=== PATIENT | female | born 1980 | race African-American/Black ===

== ENCOUNTER 2018-02-08 11:46 | Outpatient (CLI) | payer BC ==
[2018-02-08 13:26] LABS: #Lymphocytes 1.3 thou/uL (1.20-3.40); #Monocytes 0.6 thou/uL (0.11-0.59); %Eosinophils 1.1 % (0.0-10.0); %Lymphocytes 32.9 % (21.0-51.0); %Monocytes 14.4 % (0.0-10.0); %Neutrophils 50.5 % (42.0-75.0); Hemoglobin 13.7 g/dL (12.0-16.0); Mean Corpuscular HGB CONC 34.4 g/dL (32.0-36.0); Mean Platelet Volume 8.7 fL (7.4-10.4); Platelet Count 274 thou/uL (130-400); RBC Distribution Width 11.1 % (11.5-14.5); Red Blood Cell (RBC) Count 4.16 mill/uL (4.20-5.40)
[2018-02-08 13:46] LABS: Anion Gap 11 mmol/L (10-20); BUN (Urea Nitrogen) 18 mg/dL (7.0-18.7); Calc. Creatinine Clearance 0 mL/min (70-130); Calcium 9.4 mg/dL (7.8-10.44); Carbon Dioxide 26 mmol/L (22-29); Chloride 103 mmol/L (98-107); Estimated GFR-MDRD Greater than 90; Glucose 95 mg/dL (70-105); Potassium 4.3 mmol/L (3.5-5.1); Sodium 136 mmol/L (136-145)
[2018-02-08 13:54] LABS: BHCG - Serum Negative (NEGATIVE); Pregs Control Background? CLEAR/WHITE (CLR/WHITE); Pregs Control Bar Appear? YES (CONTROL BAR)
--- NOTE | 2018-02-09 17:42 | EKG ---
Test Reason : Blood Pressure : / mmHG Vent. Rate : 072 BPM Atrial Rate : 073 BPM P-R Int : 134 ms QRS Dur : 072 ms QT Int : 362 ms P-R-T Axes : 063 035 035 degrees QTc Int : 396 ms Normal sinus rhythm Low voltage QRS Borderline ECG When compared with ECG of 13-AUG-2010 15:52, Vent. rate has decreased BY [address] Jason FERGUSON ([id number]) on 02/09/2018 5:42:11 PM Referred By: ENIO Confirmed By:DR. Jason FERGUSON
== END 2018-02-08 11:47 | disposition home or self-care (01) ==
LOC: LABBT 11:46
PROVIDERS: ATTEND Specialist
DX: Z01.818 Encounter for other preprocedural examination (principal); K64.8 Other hemorrhoids; K64.4 Residual hemorrhoidal skin tags
CPT/HCPCS: 80048; 84703; 85025; 93005; 93010

== ENCOUNTER 2018-02-10 11:45 | Inpatient (IN) | payer BC ==
--- NOTE | 2018-02-08 07:16 | HP ---
HISTORY OF PRESENT ILLNESS: This is a 37-year-old black female who 15 years ago had problems with an external hemorrhoids requiring evacuation of thrombus. She has recently been to [facility] and [facility] for drainage of thrombosed external hemorrhoids in December. She thinks these are possibly on different locations. She is here today to discuss treatment of her hemorrhoid s. She is bothered by hemorrhoids, desires surgical intervention. She is bothered by the redundant perianal skin as well as recurrent thrombosed hemorrhoids. Anoscopy in the office reveals moderate i nternal hemorrhoids and abundant external hemorrhoidal tags that is prolapsing. She has prolapsing h emorrhoids. We would recommend PPH stapled hemorrhoidectomy and excision of tags. She has high dedu ctible and she will work towards getting her finances and call us to schedule this. I have given her the option of treating this nonsurgically, but she wishes to proceed. She is followed by Dr. Ajay munroe MEDICATIONS: Estradiol, vitamin D, fluticasone nasal, ibuprofen bromide, Ipratropium bromide, Lyrica 75 mg orally t.i.d., metoprolol 50 mg 1/2 tablet daily, zolpidem, and MiraLax daily. PAST MEDICAL HISTORY: Neurofibromatosis followed by Dr. Mcgregor, allergies, eczema, GERD, hyperlipide juni, multinodular goiter, ear infections, nasal allergies, sinus infections, anemia, hypertension, ir on deficiency. PAST SURGICAL HISTORY: Neurofibroma was removed by Dr. Wyman in the past. . TOBACCO: None. ALCOHOL: None. ALLERGIES: CODEINE, GI upset. REVIEW OF SYSTEMS: Ten point noncontributory. PHYSICAL EXAMINATION: VITAL SIGNS: 159 pounds, 63 inches 140/84, 92, 97.9 degrees. LUNGS: Clear to auscultation. CARDIAC: Regular rate and rhythm without murmur or gallop. ABDOMEN: Soft, nontender, no mass. SKIN: Multiple neurofibroma lesions in torso and extremities. Perianal area reveals very large hemo rrhoidal tags prolapsing. She has active hemorrhoidal disease, left perianal. Anoscopy reveals inte rnal hemorrhoids, moderate. ASSESSMENT AND PLAN: Involves some internal and external hemorrhoids, recommend PPH stapled hemorrho idectomy and excision of external hemorrhoid tags as indicated. She understands risks and benefits a nd consents.
[2018-02-10] MEDS ORDERED: Ketorolac Tromethamine 30 MG/ML VIAL ONE ×2 (12:43→18:06)
[2018-02-10] MEDS ORDERED: Acetaminophen 1,000 MG in Premix Bag 1 BAG IVPB SCH (13:00)
[2018-02-10] MEDS ORDERED: Meropenem 2 GM in Sodium Chloride 0.9% 100 ML IVPB ONE (13:00)
[2018-02-10] MEDS ORDERED: Ketorolac Tromethamine 30 MG/ML VIAL IVP SCH (13:00)
[2018-02-10] MEDS ORDERED: Fentanyl 100 MCG/2 ML VIAL ONE ×3 (13:14→15:40)
[2018-02-10] MEDS ORDERED: Lidocaine 2% PF Inj 2 ML VIAL ONE ×2 (13:18)
[2018-02-10] MEDS ORDERED: Bupivacaine HCl 0.5%/Epinephrine 1:200,000/PF 30 ml Vial ONE (13:18)
[2018-02-10] MEDS ORDERED: Lidocaine 2% Jelly 5 ML TUBE ONE (13:18)
[2018-02-10] MEDS ORDERED: Midazolam HCl 2 mg/2 ml Vial ONE (13:30)
[2018-02-10] MEDS ORDERED: Morphine 4 MG/ML VIAL ONE ×2 (16:21→17:12)
[2018-02-10] MEDS ORDERED: HYDROcodone/Acetaminophen 5/325 mg Tablet ONE (17:10)
[2018-02-10] MEDS ORDERED: HYDROcodone/Acetaminophen 10/325 mg Tablet PO PRN (20:12)
--- NOTE | 2018-02-10 20:44 | OP ---
DATE OF PROCEDURE: 02/10/2018 PREOPERATIVE DIAGNOSES: Prolapsing internal hemorrhoids with internal and external hemorrhoids, pain ful refractory to medical management. POSTOPERATIVE DIAGNOSES: Prolapsing internal hemorrhoids with internal and external hemorrhoids, cora nful refractory to medical management. PROCEDURES: PPH stapled hemorrhoidectomy, excision of three internal and external hemorrhoidal compl exes. SURGEON: Dr. Osorio Sellers. ANESTHESIA: General. Local 0.5% Marcaine with epinephrine, 30 mL, mixed with 2% Xylocaine, 10 mL mi xture used. DESCRIPTION OF PROCEDURE: Patient taken to the operating room where under general anesthesia in the prone position, perianal area and buttocks prepared with Betadine, draped in the usual fashion. Ther e are large prolapsing internal and external hemorrhoids. A speculum induced dilating the anus. Wor nikole port of the PPH stapled hemorrhoidectomy device inserted and four quadrant sutures of 2-0 silk p laced to hold the working port in position. Obturator removed. The stapling device inserted after a pursestring suture of 2-0 Prolene placed circumferentially well above the dentate line. A pursestri ng suture then brought out through the side holes of the stapling device and air knot tied and placed under tension and then stapling device tightened within the torque fire range and after adequate del ay, this stapler was fired, loosened and an intact donut removed. Staple line was hemostatic as the working port was removed. There were remaining large prolapsing internal and external hemorrhoids. These were taken care of by exciting 3 columns suture on each column of 3-0 chromic and e ach column with the LigaSure hemorrhoidal excision device. Once this was performed, continuous locki ng suture used to complete and then reinforce the closure. Good hemostasis noted. Gelfoam rolled wi th Surgicel jelly 1% Xylocaine with epinephrine and placed in the lower rectum. Good hemostasis ensu red. Local anesthetic infiltrated into the skin and subcutaneous tissue on the perianal area for pos toperative pain control. Patient tolerated the procedure well.
[2018-02-10] MEDS: Ibuprofen 600 MG TAB PO SCH (22:06)
[2018-02-10] MEDS: Lidocaine 2% Jelly 5 ML TUBE TOP SCH (22:07)
[2018-02-10 22:43] VITALS: BMI 28.4
[2018-02-10] MEDS: HYDROcodone/Acetaminophen 10/325 mg Tablet PO PRN (23:05)
[2018-02-10] MEDS ORDERED: Zolpidem Tartrate 5 MG TAB PO SCH (23:45)
[2018-02-11] MEDS: HYDROcodone/Acetaminophen 10/325 mg Tablet PO PRN (06:05)
[2018-02-11] MEDS: Ibuprofen 600 MG TAB PO SCH ×2 (08:50→11:46)
[2018-02-11] MEDS: Lidocaine 2% Jelly 5 ML TUBE TOP SCH (08:51)
[2018-02-11] MEDS ORDERED: Polyethylene Glycol 3350 17 GM Packet PO SCH ×2 (09:00)
[2018-02-11] MEDS ORDERED: Pregabalin 75 MG CAP PO SCH (09:00)
[2018-02-11] MEDS ORDERED: Enoxaparin Sodium 40 MG/0.4 ML SYRINGE SC SCH (09:00)
[2018-02-11 11:37] VITALS: BP 131/88; TEMP 98.4
--- NOTE | 2018-02-11 18:44 | PRG ---
DATE OF SERVICE: 02/11/2018 SUBJECTIVE: Ms. Vásquez is doing well today. Her pain is improved slightly. It is controlled with ora l analgesics. She is resting calmly in bed. OBJECTIVE: Abdomen is soft and nontender. She has not had any significant bleeding. Vital signs marti ve been stable. PLAN: Plan is for discharge home with hydrocodone 10/325 as necessary for pain. Follow up in my off ice in 2-3 weeks. Warm-to-hot sitz baths 2-3 times a day as indicated and after bowel movements. I have reassured her that the pain is normal post-hemorrhoidectomy and this will improve with time.
[2018-02-11] MEDS ORDERED: Zolpidem Tartrate 5 MG TAB PO SCH (21:00)
[2018-02-11] MEDS ORDERED: diphenhydrAMINE 50 MG CAP PO SCH (21:00)
[2018-02-11] MEDS ORDERED: VALERIAN ROOT 500 MG PO SCH (21:00)
[2018-02-11] MEDS ORDERED: ISIBLOOM PO SCH (21:00)
--- NOTE | 2018-02-12 03:03 | DIS ---
DATE OF ADMISSION: 02/10/2018 DATE OF DISCHARGE: 02/11/2018 DISCHARGE DIAGNOSES: 1. Neurofibromatosis. 2. Prolapsed hemorrhoids refractory to medical treatment. 3. Postoperative pain requiring overnight hospitalization. HISTORY: A 37-year-old black female with neurofibromatosis, has had prolapsing hemorrhoids with into lerable pain, refractory to medical treatment. She is admitted this occasion for PPH stapled hemorrh oidectomy and excision of large external and internal hemorrhoidal complexes. Postoperative pain req uiring admission and she is being discharged home at this time to resume her home medications as well as Burdett #[id number] one to two p.o. t.i.d. p.r.n. pain, MiraLax daily. Resume home medications. Fo llow up in my office in 2-3 weeks. She will be off work for two weeks.
== END 2018-02-11 13:21 | disposition home or self-care (01) | DRG 349 ==
LOC: SDC 11:45 → SURG A 20:00
PROVIDERS: ADMIT Specialist; ATTEND Specialist
PROC: 06BY4ZC Excision of Hemorrhoidal Plexus, Percutaneous Endoscopic Approach (ICD-10-PCS; principal; 2018-02-10)
DX: K64.8 Other hemorrhoids (principal); K64.4 Residual hemorrhoidal skin tags
CPT/HCPCS: 80048; 84703; 85025; 93005; 93010; 96374; 96375; A4216; J0131; J0670; J1650; J1885; J2185; J2250; J2270; J3010; J7050

== ENCOUNTER 2018-07-26 08:33 | Outpatient (CLI) | payer BC | END 2018-07-26 08:34 | disposition home or self-care (01) | LOC: BICMAMMO 08:33 | PROVIDERS: ATTEND Family Medicine | DX: N64.4 Mastodynia (principal); R92.1 Mammographic calcification found on diagnostic imaging of breast; Z80.3 Family history of malignant neoplasm of breast | CPT/HCPCS: 77063; 77067 ==

== ENCOUNTER 2019-07-05 07:09 | Outpatient (CLI) | payer BC ==
--- NOTE | 2019-07-05 08:07 | ULT ---
GALLBLADDER ULTRASOUND: HISTORY: Right upper quadrant abdominal pain FINDINGS: The liver demonstrates increased echogenicity consistent with fatty infiltration with focal sparing a djacent to gallbladder without focal mass or intrahepatic biliary ductal dilatation. No gallstones, gallbladder wall thickening or pericholecystic fluid are seen. There is moderate amoun t of sludge in the gallbladder. The right kidney and pancreas are normal. The common duct [id number] in diameter. No free fluid is seen in the Monique's pouch. IMPRESSION: 1. Fatty liver 2. No evidence cholelithiasis
== END 2019-07-05 07:10 | disposition home or self-care (01) ==
LOC: BICULT 07:09
PROVIDERS: ATTEND Internal Medicine Gastroenterology
DX: R10.11 Right upper quadrant pain (principal); K76.0 Fatty (change of) liver, not elsewhere classified
CPT/HCPCS: 76705

== ENCOUNTER 2019-07-22 09:17 | Outpatient (CLI) | payer BC ==
--- NOTE | 2019-07-22 10:09 | MMO ---
Bilateral MAMMO Bilat Screen [facility]. CLINICAL HISTORY: Patient is 39 years old and is seen for screening. The patient has the following family history of breast cancer: maternal grandmother, malignant (generic); 2 maternal aunts, malignant (generic) and 2 cousin females, malignant (generic). The patient has no personal history of cancer. VIEWS: The views performed were: bilateral craniocaudal with tomosynthesis and bilateral mediolateral oblique with tomosynthesis. FILMS COMPARED: The present examination has been compared to prior imaging studies performed at [facility] on 12/17/2012 and 07/26/2018. This study has been interpreted with the assistance of computer-aided detection. MAMMOGRAM FINDINGS: The breasts are heterogeneously dense, which could obscure a lesion on mammography. There are stable benign appearing calcifications seen in both breasts. There are no suspicious masses, suspicious calcifications, or new areas of architectural distortion. IMPRESSION: THERE IS NO MAMMOGRAPHIC EVIDENCE OF MALIGNANCY. A ROUTINE FOLLOW-UP MAMMOGRAM IN 1 YEAR IS RECOMMENDED. THE RESULTS OF THIS EXAM WERE SENT TO THE PATIENT. ACR BI-RADS Category 2 - Benign finding MAMMOGRAPHY NOTE: 1. A negative mammogram report should not delay a biopsy if a dominant of clinically suspicious mass is present. 2. Approximately 10% to 15% of breast cancers are not detected by mammography. 3. Adenosis and dense breasts may obscure an underlying neoplasm. Reported by: MELITON BENSON MD Electonically Signed: [id number]
== END 2019-07-22 09:18 | disposition home or self-care (01) ==
LOC: BICMAMMO 09:17
PROVIDERS: ATTEND Physician Assistant
DX: Z12.31 Encounter for screening mammogram for malignant neoplasm of breast (principal); Z80.3 Family history of malignant neoplasm of breast
CPT/HCPCS: 77063; 77067

== ENCOUNTER 2019-08-08 08:05 | Outpatient (CLI) | payer BC ==
[2019-08-08 08:37] LABS: Estimated GFR-MDRD - POC Greater than 90
--- NOTE | 2019-08-08 10:54 | MRI ---
MRI ABDOMEN WITH AND WITHOUT IV CONTRAST: HISTORY: Epigastric pain. FINDINGS: There is signal dropout of the signal intensity of the liver on the [id number] images compared to t he in-phase images consistent with fatty infiltration. No hepatic mass or abnormal biliary ductal di latation is seen. The spleen, pancreas, adrenal glands, kidneys, and gallbladder are normal. No mazin e fluid or lymphadenopathy is seen. The aorta is of normal caliber. The bone marrow signal is amanda l. IMPRESSION: Fatty liver. POS: [facility]
[2019-08-08] MEDS ORDERED: Magnevist 469MG/ML 20 ML VIAL ONE (15:01)
== END 2019-08-08 08:06 | disposition home or self-care (01) ==
LOC: BICMRI 08:05
PROVIDERS: ATTEND Internal Medicine Gastroenterology
DX: K92.1 Melena (principal); R10.13 Epigastric pain; Q85.09 Other neurofibromatosis; K76.0 Fatty (change of) liver, not elsewhere classified
CPT/HCPCS: 74183; 82565; A9579

== ENCOUNTER 2025-01-16 17:43 | Emergency (ER) | payer BC ==
[2025-01-16 18:36] LABS: CAUTI Indications for Culture Fever or rigors; Glucose, Urine (Dipstick) Normal (Negative); Leukocyte 75 Leu/uL (Negative); Protein, Urine (Dipstick) 10 mg/dL (Neg-Trace); RBC/HPF 21-50 HPF (0-3); Specific Gravity, Urine 1.019 (1.002-1.036); WBC/HPF 21-50 HPF (0-3)
[2025-01-16 18:37] LABS: Bacteria/HPF 1+ HPF (None Seen); Urine Culture Reflex Yes Yes
[2025-01-16] MEDS ORDERED: Acetaminophen 325 MG TAB ONE (19:30)
[2025-01-16 20:00] LABS: #Basophils Less than 0.03 10x3/uL (0.0-0.2); #Eosinophils Less than 0.03 10x3/uL (0.0-0.7); #Monocytes 0.46 10x3/uL (0.11-0.59); #Neutrophils 3.87 10x3/uL (1.40-6.50); %Basophils 0.2 % (0.0-1.0); %Eosinophils 0.2 % (0.0-10.0); %Lymphocytes 14.0 % (21.0-51.0); %Monocytes 9.1 % (0.0-10.0); %Neutrophils 76.1 % (42.0-75.0); Hematocrit 40.2 % (36.0-47.0); Hemoglobin 12.8 g/dL (12.0-16.0); Mean Corpuscular Hemoglobin 30.2 pg (27.0-31.0); Mean Corpuscular Volume 94.8 fL (78.0-98.0); Platelet Count 241 10x3/uL (130-400); Red Blood Cell (RBC) Count 4.24 mill/uL (4.20-5.40); White Blood Cell (WBC) Count 5.08 10x3/uL (4.8-10.8)
[2025-01-16 20:20] LABS: ALT (SGPT) 10 U/L (Less than 34); AST (SGOT) 20 U/L (11-34); Albumin 3.8 g/dL (3.1-4.5); Alkaline Phosphatase 60 U/L (40-110); Anion Gap 16 mmol/L (10-20); BUN (Urea Nitrogen) 13 mg/dL (7.0-18.7); Bilirubin, Total 0.4 mg/dL (0.3-1.2); Calc. Creatinine Clearance 0 mL/min (70-130); Calcium 9.1 mg/dL (7.8-10.44); Carbon Dioxide 21 mmol/L (22-29); Chloride 106 mmol/L (98-107); Globulin 3.8 g/dL (2.4-3.5); Glucose 106 mg/dL (70-105); Potassium 3.8 mmol/L (3.5-5.1); Sodium 139 mmol/L (136-145)
[2025-01-16] MEDS ORDERED: cefTRIAXone (ROCEPHIN) 1 GM VIAL ONE (20:43)
== END 2025-01-16 22:53 | disposition home or self-care (01) ==
LOC: ERS 17:43
DX: N10 Acute pyelonephritis (principal); I10 Essential (primary) hypertension
CPT/HCPCS: 80053; 81001; 83605; 85025; 87040; 87077; 87086; 96365; J0696

== ENCOUNTER 2025-01-17 18:55 | Emergency (ER) | payer BC ==
[2025-01-17 23:01] LABS: #Basophils Less than 0.03 10x3/uL (0.0-0.2); #Eosinophils 0.04 10x3/uL (0.0-0.7); #Monocytes 0.45 10x3/uL (0.11-0.59); #Neutrophils 1.43 10x3/uL (1.40-6.50); %Basophils 0.3 % (0.0-1.0); %Eosinophils 1.3 % (0.0-10.0); %Lymphocytes 34.7 % (21.0-51.0); %Monocytes 15.2 % (0.0-10.0); %Neutrophils 48.2 % (42.0-75.0); Hematocrit 37.8 % (36.0-47.0); Hemoglobin 11.8 g/dL (12.0-16.0); Mean Corpuscular Hemoglobin 30.2 pg (27.0-31.0); Mean Corpuscular Volume 96.7 fL (78.0-98.0); Platelet Count 241 10x3/uL (130-400); Red Blood Cell (RBC) Count 3.91 mill/uL (4.20-5.40); White Blood Cell (WBC) Count 2.97 10x3/uL (4.8-10.8)
[2025-01-17 23:20] LABS: ALT (SGPT) 19 U/L (Less than 34); AST (SGOT) 28 U/L (11-34); Albumin 3.3 g/dL (3.1-4.5); Alkaline Phosphatase 55 U/L (40-110); Anion Gap 14 mmol/L (10-20); BUN (Urea Nitrogen) 11 mg/dL (7.0-18.7); Bilirubin, Total 0.3 mg/dL (0.3-1.2); Calc. Creatinine Clearance 0 mL/min (70-130); Calcium 8.6 mg/dL (7.8-10.44); Carbon Dioxide 20 mmol/L (22-29); Chloride 110 mmol/L (98-107); Globulin 3.4 g/dL (2.4-3.5); Glucose 98 mg/dL (70-105); Potassium 4.1 mmol/L (3.5-5.1); Sodium 140 mmol/L (136-145)
[2025-01-17 23:27] LABS: Bacteria/HPF None Seen HPF (None Seen); CAUTI Indications for Culture Fever or rigors; Glucose, Urine (Dipstick) Normal (Negative); Leukocyte Negative Leu/uL (Negative); Protein, Urine (Dipstick) Negative (Neg-Trace); Specific Gravity, Urine 1.020 (1.002-1.036)
[2025-01-17 23:29] LABS: Urine Culture Reflex No No
[2025-01-18] MEDS ORDERED: Ketorolac Tromethamine 30 MG (1 mL) VIAL ONE (03:19)
[2025-01-18] MEDS ORDERED: Cefdinir 300 MG CAP PO SCH (03:30)
== END 2025-01-18 04:12 | disposition home or self-care (01) ==
LOC: ERS 18:55
DX: N10 Acute pyelonephritis (principal); I10 Essential (primary) hypertension
CPT/HCPCS: 36415; 74176; 80053; 81001; 83605; 85025; 87040; 87077; 87086; 87186; 96365; 96366; 96375; J1885; J2543